=== PATIENT | female | born 1975 | race Caucasian/White ===

== ENCOUNTER 2018-12-12 20:32 | Emergency (ER) | payer BC ==
[~2018-12-12] VITALS: Ht 152.4 cm; Wt 65.9 kg
[2018-12-12] MEDS ORDERED: WELLBUTRIN XL300 M1 PO (20:46)
[2018-12-12] MEDS ORDERED: BUSPIRONE5 MG PO (22:04)
[2018-12-12] MEDS ORDERED: MULTIPLE VITAMI1 T25 PO (22:05)
[2018-12-12 22:31] VITALS: BP 110/67
== END 2018-12-12 22:31 | disposition home or self-care (01) ==
LOC: ED 20:32
DX: F41.0 Panic disorder [episodic paroxysmal anxiety] (principal); F43.0 Acute stress reaction